=== PATIENT | male | born 1980 | race Caucasian/White ===

== ENCOUNTER 2017-08-11 20:50 | Emergency (ER) | payer OTHER ==
[~2017-08-11] VITALS: Ht 172.7 cm; Wt 90.7 kg
[~2017-08-11 20:50] MED LIST: ADDERALL; ALBU90OI INH; ALPR1 PO; AMOX500 PO; ANTOXYBENA LEFTEAR; BUSP5 PO; CEPH500 PO; CYCL10 PO; FLUSAL2505 IH; HYDACE5 PO; HYDACE5325 PO; METPRE4DP PO; OXYACE5T PO; PROACE100 PO; Prednisone20 MG PO
[2017-08-11] MEDS ORDERED: SUBOXONE 8 MG-1 EACH SL (21:00)
[2017-08-11] MEDS ORDERED: HYDHCL25 PO (21:01)
[2017-08-11] MEDS ORDERED: TRAZ50 PO (21:01)
== END 2017-08-11 21:58 | disposition home or self-care (01) ==
LOC: ER 20:50
DX: K59.00 Constipation, unspecified (principal); K21.9 Gastro-esophageal reflux disease without esophagitis; J45.909 Unspecified asthma, uncomplicated; F17.200 Nicotine dependence, unspecified, uncomplicated; Z79.899 Other long term (current) drug therapy
CPT/HCPCS: 74018

== ENCOUNTER 2020-05-17 19:36 | Emergency (ER) | payer SELFPAY ==
[~2020-05-17] VITALS: Ht 172.7 cm; Wt 95.2 kg
[~2020-05-17 19:36] MED LIST changes: +HYDHCL25 PO; +SUBOXONE 8 MG-1 EACH SL; +TRAZ50 PO
[2020-05-17 20:13] LABS: BASOPHILS ABSOLUTE AUTO 0.02 K/mm3 (0.00-0.23); BASOPHILS PERCENT AUTO 0 % (0-2); EOSINOPHILS ABSOLUTE AUTO 0.14 K/mm3 (0.00-0.68); EOSINOPHILS PERCENT AUTO 2 % (0-6); Hematocrit 38.4 % (37.0-53.0); Hemoglobin 12.4 g/dL (13.5-17.5); IMMATURE GRAN ABSOLUTE AUTO 0.01 K/mm3 (0.00-0.10); IMMATURE GRAN PERCENT AUTO 0 % (0-1); LYMPHOCYTES PERCENT AUTO 18 % (21-46); MONOCYTES ABSOLUTE AUTO 0.41 K/mm3 (0.16-1.47); MONOCYTES PERCENT AUTO 4 % (4-13); Mean Corpuscular HGB 26.5 pg (26.0-34.0); Mean Corpuscular HGB Conc 32.3 g/dL (31.5-36.5); Mean Corpuscular Volume 82 fL (80-100); Mean Platelet Volume 9.1 fL (9.1-12.4); NEUTROPHILS ABSOLUTE AUTO 7.26 K/mm3 (1.96-9.15); NEUTROPHILS PERCENT AUTO 76 % (41-73); Platelet Count 247 K/mm3 (150-400); RDW Coefficient Variation 13.6 % (11.7-14.2); RDW Standard Deviation 40.9 fL (35.1-46.3); Red Blood Cell Count 4.68 M/mm3 (4.30-5.90); White Blood Cell Count 9.54 K/mm3 (4.00-11.30)
[2020-05-17 20:30] LABS: Alanine Aminotransfer (ALT/SGP 39 U/L (12-78); Albumin, Blood 3.6 g/dL (3.4-5.0); Albumin/Globulin Ratio 1.1 (0.8-1.8); Alk Phos 63 U/L (50-136); Anion Gap 4 mmol/L (6-16); Aspartate Aminotrans (AST/SGOT 14 U/L (12-37); Bilirubin, Total 0.4 mg/dL (0.1-1.0); Blood Urea Nitrogen 15 mg/dL (8-24); Bun/Creatinine Ratio 18.1 (12.0-20.0); CO2, Blood 28 mmol/L (21-32); Calcium, Blood 8.4 mg/dL (8.5-10.1); Chloride, Blood 106 mmol/L (98-108); Creatinine, Blood 0.83 mg/dL (0.60-1.20); Globulin, Blood 3.3 g/dL (2.2-4.0); Glomerular Filtration Rate >60 (60-); Glucose, Blood 114 mg/dL (70-99); Potassium, Blood 3.7 mmol/L (3.5-5.5); Sodium, Blood 138 mmol/L (136-145); Total Protein, Blood 6.9 g/dL (6.4-8.2)
[2020-05-17] MEDS ORDERED: Enulose10 GM/15 M PO (21:04)
== END 2020-05-17 21:00 | disposition home or self-care (01) ==
LOC: ER 19:36
PROVIDERS: Physician Assistant
DX: K59.00 Constipation, unspecified (principal); F11.10 Opioid abuse, uncomplicated; F17.200 Nicotine dependence, unspecified, uncomplicated; Z79.899 Other long term (current) drug therapy
CPT/HCPCS: 36415; 74177; 80053; 83690; 85025; 99284-25; A9270; J7030; Q9967

== ENCOUNTER 2022-01-14 10:01 | Emergency (ER) | payer OTHER ==
[~2022-01-14] VITALS: Ht 172.7 cm; Wt 97.5 kg
[~2022-01-14 10:01] MED LIST changes: +Enulose10 GM/15 M PO
== END 2022-01-14 12:20 | disposition home or self-care (01) ==
LOC: ER 10:01
DX: M25.511 Pain in right shoulder (principal); K21.9 Gastro-esophageal reflux disease without esophagitis; J45.909 Unspecified asthma, uncomplicated; F17.210 Nicotine dependence, cigarettes, uncomplicated; Z79.899 Other long term (current) drug therapy
CPT/HCPCS: 73030; A9270; J1885

== ENCOUNTER 2022-06-10 04:26 | Emergency (ER) | payer OTHER ==
[~2022-06-10] VITALS: Ht 172.7 cm; Wt 102.1 kg
[2022-06-10] MEDS ORDERED: MURINE EAR BOTHEARS ×2 (04:44→04:57)
[2022-06-10] MEDS ORDERED: DECADRON6 M1 PO ×2 (04:44→04:57)
[2022-06-10] MEDS ORDERED: DEXA2 PO (04:58)
== END 2022-06-10 05:00 | disposition home or self-care (01) ==
LOC: ER 04:26
DX: H61.23 Impacted cerumen, bilateral (principal); K21.9 Gastro-esophageal reflux disease without esophagitis; J45.909 Unspecified asthma, uncomplicated; F17.210 Nicotine dependence, cigarettes, uncomplicated; Z79.899 Other long term (current) drug therapy
CPT/HCPCS: 99282

== ENCOUNTER 2024-07-07 17:53 | Emergency (ER) | payer OTHER ==
[~2024-07-07] VITALS: Ht 170.2 cm; Wt 108.9 kg
[~2024-07-07 17:53] MED LIST changes: +DECADRON6 M1 PO; +DEXA2 PO; +MURINE EAR BOTHEARS
[2024-07-07 18:21] VITALS: BP 144/112
[2024-07-07] MEDS ORDERED: Ketorolac Tromethamine 30mg Vial IM ONE (19:00)
[2024-07-07] MEDS ORDERED: Methocarbamol 500 MG Tab PO ONE (19:00)
[2024-07-07] MEDS ORDERED: Robaxin750 MG PO (19:03)
== END 2024-07-07 19:11 | disposition home or self-care (01) ==
LOC: ER 17:53
DX: S29.012A Strain of muscle and tendon of back wall of thorax, initial encounter (principal); M62.830 Muscle spasm of back; F17.210 Nicotine dependence, cigarettes, uncomplicated; X58.XXXA Exposure to other specified factors, initial encounter
CPT/HCPCS: 96372; 99283-25; A9270; J1885